=== PATIENT | male | born 1990 | race Caucasian/White ===

== ENCOUNTER → 2020-11-24 | Outpatient (CLI) | payer OTHER ==
[~2020-11-24] MED LIST: ISOVUE-M 300 61% 15ML VIAL As Ordered ONE; LIDOCAINE 1% MDV 20ML VIAL As Ordered ONE
--- NOTE | 2020-11-24 10:26 | REPVR ---
PROCEDURE INFORMATION: Exam: CT Lumbar Spine Without Contrast Myelogram Exam date and time: 11/24/2020 10:00 AM Age: 30 years old Clinical indication: Low back pain; Patient HX: Status post lumbar myelogram TECHNIQUE: Imaging protocol: Computed tomography images of the lumbar spine with intrathecal contrast. Radiation optimization: All CT scans at this facility use at least one of these dose optimization techniques: automated exposure control; mA and/or kV adjustment per patient size (includes targeted exams where dose is matched to clinical indication); or iterative reconstruction. COMPARISON: XA Myelogram, Lumbar 11/24/2020 9:02 AM FINDINGS: Vertebrae: The lumbar vertebral bodies are normal in height and alignment.No acute fracture or dislocation is seen. There is good contrast opacification of the thecal sac. L1-L2: There is no significant degenerative disc herniation.The spinal canal and neural foramina are patent and without significant stenosis. L2-L3: There is epidural contrast extravasation anterior to the thecal sac, just right of the midline. This causes mild indentation on the adjacent thecal sac. Axial image 28.There is no significant degenerative disc herniation.The spinal canal and neural foramina are patent and without significant stenosis. L3-L4: There is no significant degenerative disc herniation.The spinal canal and neural foramina are patent and without significant stenosis. L4-L5: There is a mild diffuse posterior bulge causing mild effacement of the thecal sac.The facet joints demonstrate mild degenerative hypertrophy and sclerosis.The spinal canal and neural foramina are patent and without significant stenosis. L5-S1: There is a mild diffuse posterior bulge causing mild effacement of the thecal sac.The facet joints demonstrate mild degenerative hypertrophy and sclerosis.The spinal canal and neural foramina are patent and without significant stenosis. Soft tissues: The prevertebral soft tissues appear normal. IMPRESSION: 1. CT scan of the lumbar spine reveals mild multilevel degenerative spondylitic changes and degenerative disc disease as described above. 2. No acute fracture or dislocation is seen. Electronically signed by: Jose Rendon On 11/24/2020 10:25:54 AM
[2020-11-24 10:56] VITALS: BP 118/84
--- NOTE | 2020-11-24 11:48 | REP ---
PROCEDURE NAME: MYELOGRAM, LUMBAR CLINICAL INFORMATION: LOW BACK PAIN. PROCEDURE DESCRIPTION: The procedure was performed by Stacy Chavarria [facility], under the direct supervision of Dr. Contreras. The risks and benefits of the procedure were explained to the patient and an informed consent was obtained both verbally and written. Directly prior to the start of the procedure a formal time-out was completed in the procedure room. The L2-3 interspace was localized using fluoroscopic guidance. The skin was prepped and draped in a sterile fashion. Five ml 1 % lidocaine 10 milligrams/milliliter was used as a local anesthetic. Using fluoroscopic guidance a 22 gauge spinal needle was inserted and advanced into the thecal sac. Approximately 7 mL of Isovue-M 300 was injected. The needle was removed and the patient was taken to CT for postprocedural imaging. Fluoroscopic myelographic images demonstrate a ventral indentation on the thecal sac at L4-5 consistent with disc bulging. A small metallic shrapnel for fragment is projected over the spinal canal the lateral spot view. This is not seen on the other projections and is in the extra-spinal soft tissues. 0.1 minutes of fluoroscopy time was utilized for this procedure. Some fluoroscopic images are performed with last image hold technology. These images require no additional radiation. The patient tolerated the procedure well and there were no immediate complications. After the appropriate amount of monitored chondral assist the patient was discharged back to the unit. CONCLUSION: Fluoroscopic guided myelogram demonstrating a ventral indentation on the thecal sac at L4-5 consistent with disc bulging. A small metallic shrapnel for fragment is projected over the spinal canal the lateral spot view. This is not seen on the other projections and is in the extra-spinal soft tissues. <Electronically signed by Stacy Chavarria > 11/24/20 1136 <Electronically signed by Inocente Contreras > 11/24/20 1148
== END ==
LOC: M IRPRO 08:28
PROVIDERS: ATTEND Physician Assistant
DX: M54.5 Low back pain (principal)
CPT/HCPCS: 62304; 72131; Q9967

== ENCOUNTER 2020-11-25 10:38 | Emergency (ER) | payer OTHER ==
[~2020-11-25] VITALS: Ht 182.9 cm; Wt 81.8 kg
[2020-11-25 10:38] VITALS: BP 127/77
== END 2020-11-25 11:54 | disposition home or self-care (01) ==
LOC: M ED 10:38
DX: R51.9 Headache, unspecified (principal); G97.1 Other reaction to spinal and lumbar puncture

== ENCOUNTER → 2021-12-21 | Outpatient (CLI) | payer OTHER ==
[~2021-12-21] MED LIST changes: +E-Z-GAS II EFFERVESCENT PACKET (SODIUM BICARB./CITRIC ACID/SIMETHICONE) As Ordered ONE; +E-Z-HD 98% w/w 340GM SUSP BTL As Ordered ONE; +E-Z-PAQUE 96% w/w SUSP 176GM BTL As Ordered ONE; -ISOVUE-M 300 61% 15ML VIAL As Ordered ONE; -LIDOCAINE 1% MDV 20ML VIAL As Ordered ONE
== END ==
LOC: M RAD 08:12
PROVIDERS: ATTEND Physician Assistant Medical
DX: R13.10 Dysphagia, unspecified (principal)